=== PATIENT | male | born 1975 | race Caucasian/White ===

== ENCOUNTER 2017-02-08 17:03 | Inpatient (IN) | payer OTHER ==
[~2017-02-08] VITALS: Ht 177.8 cm; Wt 75.3 kg
[~2017-02-08 17:03] MED LIST: AMOXICOT500 MG PO; ATIVAN1 MG PO; DIAZEPAM10 M1 PO; DILANTIN100 MG PO; KLONOPIN1 MG PO; LEVETIRACETAM500 MG PO; LOMOTIL 0.025 M1 TA1 PO; PHENERGAN25 MG RC; TEGRETOL100 MG PO; TEGRETOL200 MG PO; TRAMADOL HCL50 MG PO; TRAZODONE50 MG PO; TRIMOX500 MG PO; VALIUM10 MG PO; VICODIN 5/500 505 MG PO; VICODIN ES 7501 TAB PO; VYVANSE50 MG PO
[2017-02-08 17:08] VITALS: BP 130/77
[2017-02-08 17:35] LABS: BASO # 0.1 10*3/uL (0.0-0.1); BASO % 0.4 % (0.0-1.0); EOS % 0.1 % (1.0-4.0); HEMATOCRIT 49.7 % (42.0-52.0); HEMOGLOBIN 16.1 g/dl (14.0-18.0); LYMPH % 15.1 % (27.0-41.0); MEAN CELL VOLUME 89.1 fl (80.0-94.0); MEAN CORPUSCULAR HGB 28.9 pg (27.0-31.0); MEAN CORPUSCULAR HGB CONC 32.4 g/dl (33.0-37.0); MEAN PLATELET VOLUME 10.5 fl (9.6-12.3); MONO # 0.5 10*3/uL (0.1-1.0); MONO % 3.7 % (3.0-9.0); NEUT # 10.7 10*3/uL (2.3-7.9); NEUT % 80.3 % (47.0-73.0); PLATELET COUNT AUTOMATED 283 10*3/uL (130-400); RED BLOOD COUNT 5.58 10*6/uL (4.50-5.90); RED CELL DISTRI WIDTH 14.4 % (0-14.5); WHITE BLOOD COUNT 13.4 10*3/uL (4.8-10.8)
[2017-02-08 17:44] LABS: ACT PARTIAL THROMBO TIME 26.8 SECONDS (20.8-31.5)
[2017-02-08 17:49] LABS: ALBUMIN 3.5 gm/dl (3.1-4.5); ALKALINE PHOSPHATASE 192 U/L (45-117); BUN 12 mg/dl (7-24); CHLORIDE 104 mmol/L (98-107); CREATININE 0.88 mg/dL (0.70-1.30); MAGNESIUM 2.2 mg/dL (1.5-2.1); POTASSIUM 4.4 mmol/L (3.5-5.1); SGOT/AST 147 IU/L (3-35); SGPT/ALT 228 U/L (12-78); SODIUM 138 mmol/L (136-145); TOTAL PROTEIN 7.5 gm/dL (6.4-8.2)
--- NOTE | 2017-02-08 19:30 | NUR ---
41 year old MALE admitted to room # 411 for stabilization. 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 Compliant with admission procedure. Patient denies any anxiety, but is unable to sit still, taps toes to floor continuously, looks about room, unable to focus eyes on nurse during interview. See assessment forms for additional information about patient status.
--- NOTE | 2017-02-08 19:37 | NUR ---
PT C/O NAUSEA, ANXIETY, AND BODY ACHES "ALL OVER" RATING ACHES 4/10. OH ZOFRAN, VISTARIL AND ROBAXIN GIVEN PER ORDER
[2017-02-08 20:00] VITALS: BP 121/67
--- NOTE | 2017-02-08 20:10 | NUR ---
PER PT PRN WERE EFFECTIVE, PT IN BED WITH EYES OPEN, VISITING WITH . CALL LIGHT WITHIN REACH
[2017-02-08 22:33] LABS: BILIRUBIN NEGATIVE (NEGATIVE); BLOOD NEGATIVE (NEGATIVE); CLARITY CLEAR (CLEAR); COLOR YELLOW (YELLOW); GLUCOSE NEGATIVE (NEGATIVE); KETONE NEGATIVE (NEGATIVE); LEUKO ESTERASE NEGATIVE (NEGATIVE); NITRITE NEGATIVE (NEGATIVE); PH 6.5 (5.0-9.0); SPECIFIC GRAVITY <= 1.005 (1.005-1.030); UROBILINOGEN 0.2 E.U./dl (0.2-1.0)
[2017-02-08 22:39] LABS: URINE AMPHETAMINES < 1000 (1000ng/ml); URINE BARBITURATES < 200 (200ng/ml); URINE BENZODIAZEPINES < 200 (200ng/ml); URINE CANNABINOIDS (THC) < 50 (50ng/ml); URINE COCAINE > 300 (300ng/ml); URINE METHADONE < 300 (300ng/ml); URINE OPIATES > 300 (300ng/ml)
[2017-02-08 22:40] LABS: URINE PHENCYCLIDINE < 25 (25ng/ml)
[2017-02-08 22:42] LABS: BACTERIA TRACE; MUCOUS TRACE; RBC 0-2 rbc/hpf (0-2); WBC 0-2 wbc/hpf (0-5)
[2017-02-09] VITALS: BP 120/57
[2017-02-09 05:48] LABS: ALBUMIN 2.9 gm/dl (3.1-4.5); ALKALINE PHOSPHATASE 167 U/L (45-117); BUN 15 mg/dl (7-24); CHLORIDE 106 mmol/L (98-107); CREATININE 0.86 mg/dL (0.70-1.30); POTASSIUM 4.3 mmol/L (3.5-5.1); SGOT/AST 138 IU/L (3-35); SGPT/ALT 213 U/L (12-78); SODIUM 143 mmol/L (136-145); TOTAL PROTEIN 6.5 gm/dL (6.4-8.2)
[2017-02-09 05:54] LABS: BASO # 0.1 10*3/uL (0.0-0.1); BASO % 0.7 % (0.0-1.0); EOS # 0.2 10*3/uL (0.0-0.4); EOS % 2.3 % (1.0-4.0); HEMATOCRIT 45.8 % (42.0-52.0); HEMOGLOBIN 14.8 g/dl (14.0-18.0); LYMPH # 2.8 10*3/uL (1.3-4.4); LYMPH % 31.8 % (27.0-41.0); MEAN CELL VOLUME 89.6 fl (80.0-94.0); MEAN CORPUSCULAR HGB CONC 32.3 g/dl (33.0-37.0); MEAN PLATELET VOLUME 10.7 fl (9.6-12.3); MONO # 0.8 10*3/uL (0.1-1.0); MONO % 8.7 % (3.0-9.0); NEUT # 4.9 10*3/uL (2.3-7.9); NEUT % 56.2 % (47.0-73.0); PLATELET COUNT AUTOMATED 262 10*3/uL (130-400); RED BLOOD COUNT 5.11 10*6/uL (4.50-5.90); RED CELL DISTRI WIDTH 14.6 % (0-14.5); WHITE BLOOD COUNT 8.7 10*3/uL (4.8-10.8)
--- NOTE | 2017-02-09 06:48 | NUR ---
24 HR chart check completed.
[2017-02-09 08:00] VITALS: BP 99/59
[2017-02-09 12:00] VITALS: BP 93/57
--- NOTE | 2017-02-09 15:52 | NUR ---
PRN PAIN MED GIVEN FOR 5/10 GENERALIZED ACHES.
--- NOTE | 2017-02-09 15:52 | NUR ---
PRN VISTARIL GIVEN FOR PT REPORT OF ANXIETY.
[2017-02-09 16:00] VITALS: BP 94/52
--- NOTE | 2017-02-09 16:52 | NUR ---
PRN ANXIETY MED EFFECTIVE, PT REPORTS ANXIETY HAS LESSENS.
--- NOTE | 2017-02-09 16:52 | NUR ---
PRN PAIN MED MINIMALLY EFFECTIVE PT REPORTS PAIN STILL 4-5/10 AND REQUESTING TYLENOL.
--- NOTE | 2017-02-09 17:20 | NUR ---
PRN MOTRIN GIVEN FOR 5/10 GENERALIZED ACHES.
--- NOTE | 2017-02-09 18:20 | NUR ---
PRN MOTRIN EFFECTIVE FOR PAIN PT RATES PAIN 2-3/10 GENERALIZED ACHES.
[2017-02-09 20:00] VITALS: BP 98/58
--- NOTE | 2017-02-09 22:00 | NUR ---
MEDICATE WITH BENTYL, DESYREL, REQUIP, ROBAXIN, AND VISTARIL FOR C/O WITHDRAWL.
--- NOTE | 2017-02-09 23:15 | NUR ---
Patient resting. Responding to scheduled medications with fewer complaints of pain and anxiety.
[2017-02-10] VITALS: BP 92/48
--- NOTE | 2017-02-10 02:00 | NUR ---
SLEEPING. NO SXS OF DISTRESS. CALL LIGHT IN REACH.
--- NOTE | 2017-02-10 05:49 | NUR ---
Patient reports the following symptoms of withdrawal: body aches, leg pain, nausea and cravings. Patient given scheduled/PRN medication to control withdrawal symptoms. Close observation will be maintained.
--- NOTE | 2017-02-10 06:42 | NUR ---
Patient resting. Responding to scheduled medications with fewer complaints of pain and anxiety.
[2017-02-10 08:00] VITALS: BP 85/46
[2017-02-10 12:00] VITALS: BP 109/53
[2017-02-10 13:04] LABS: HEPATITIS B SURFACE AG Negative (Negative)
[2017-02-10 16:00] VITALS: BP 97/60
--- NOTE | 2017-02-10 19:31 | NUR ---
PRN BENTYL GIVEN FOR PT REPORT STOMACH PAIN 5/10 WITH EATING.
--- NOTE | 2017-02-10 19:31 | NUR ---
PRN REQUIP GIVEN FOR PT REPORT 5/10 LEG PAIN.
[2017-02-10 20:00] VITALS: BP 118/58
--- NOTE | 2017-02-10 20:31 | NUR ---
PRN REQUIP EFFECTIVE, PT DENIES LEG PAIN.
--- NOTE | 2017-02-10 20:31 | NUR ---
PRN STOMACH MED EFFECTIVE PT DENIES ANY ABDOMINAL PAIN.
--- NOTE | 2017-02-10 20:52 | NUR ---
PRN TRAZADONE AND VISTARIL GIVEN PER PT REQUEST. PT REPORTS ANXIETY AND JUST WANTING TO SLEEP.
--- NOTE | 2017-02-10 20:52 | NUR ---
HERIBERTO PAGE APPLIED PER PT REQUEST.
--- NOTE | 2017-02-10 21:52 | NUR ---
PRN TRAZADONE AND VISTRIL EFFECTIVE, PT STATES HE IS FEELING LESS ANXIOUS.
[2017-02-11] VITALS: BP 104/52
--- NOTE | 2017-02-11 01:53 | NUR ---
24 HR chart check completed.
[2017-02-11 08:00] VITALS: BP 94/54
--- NOTE | 2017-02-11 08:59 | NUR ---
C/O back pain and restless legs. Medicated with requip, tylenol, and robaxin. Vistaril given for mild anxiety. Pt states that he has an appointment at 11 am today and needs to be discharged soon so he can make that appt. States he doesnt want to miss it as it is very important.
--- NOTE | 2017-02-11 09:15 | NUR ---
Spoke with Dr. Castaneda at this time and notified him that pt has important appointment at 11 am today and needs to be discharged soon to make pt. Dr. Castaneda states he will call Dr. Parker regarding this.
[2017-02-11 09:41] LABS: HEPATITIS C VIRUS ANTIBODY >11.0 s/co (0.0-0.9)
[2017-02-11] MEDS ORDERED: ZOFRAN 4 MG ED2 TAB PO (10:20)
[2017-02-11] MEDS ORDERED: ROPINIROLE HYD0.5 MG PO (10:20)
[2017-02-11] MEDS ORDERED: ATARAX,VISTARIL50 MG PO (10:20)
--- NOTE | 2017-02-11 10:30 | NUR ---
Discharge instructions reviewed with patient/family. Patient receptive and verbalizes understanding. Follow-up care arranged. Written instructions given to patient/family. Pt instructed to follow up with PCP and Dr. Tabor. Left via ambulatory in care of . Declined wheelchair. PATRICIA NUR
== END 2017-02-11 10:30 | disposition home or self-care (01) | DRG 897 ==
LOC: ED 17:03 → 4E 17:23 → EDHOLD 17:23 → 4E 17:57
PROVIDERS: Emergency Medicine; Internal Medicine; ADMIT Internal Medicine
DX: F11.23 Opioid dependence with withdrawal (principal); G40.804 Other epilepsy, intractable, without status epilepticus; E44.0 Moderate protein-calorie malnutrition; F41.9 Anxiety disorder, unspecified; F32.9 Major depressive disorder, single episode, unspecified; R76.8 Other specified abnormal immunological findings in serum; R74.0 Nonspecific elevation of levels of transaminase and lactic acid dehydrogenase [LDH]; Z72.0 Tobacco use; Z71.6 Tobacco abuse counseling; Z68.23 Body mass index [BMI] 23.0-23.9, adult; Z82.49 Family history of ischemic heart disease and other diseases of the circulatory system; Z80.8 Family history of malignant neoplasm of other organs or systems; Z82.0 Family history of epilepsy and other diseases of the nervous system; Z79.899 Other long term (current) drug therapy

== ENCOUNTER 2017-09-20 15:30 | Emergency (ER) | payer OTHER ==
[~2017-09-20] VITALS: Ht 177.8 cm; Wt 77.1 kg
[~2017-09-20 15:30] MED LIST changes: +ATARAX,VISTARIL50 MG PO; +ROPINIROLE HYD0.5 MG PO; +ZOFRAN 4 MG ED2 TAB PO
[2017-09-20] MEDS ORDERED: KEPPRA500 MG PO (17:32)
== END 2017-09-20 17:33 | disposition home or self-care (01) ==
LOC: ED 15:30
DX: R56.9 Unspecified convulsions (principal); F41.9 Anxiety disorder, unspecified; F32.9 Major depressive disorder, single episode, unspecified; F17.200 Nicotine dependence, unspecified, uncomplicated; Z79.899 Other long term (current) drug therapy

== ENCOUNTER 2018-02-10 11:47 | Emergency (ER) | payer OTHER ==
[~2018-02-10] VITALS: Ht 177.8 cm; Wt 74.8 kg
--- NOTE | ~2018-02-10 | EKG ---
[place], [place] ELECTROCARDIOGRAM REPORT NAME: TD JAIMES UNIT #: [id number] ROOM: DOCTOR: EPIPHANY DRAFT REPORT BIRTHDATE: [birth year] [facility] Test Date: 2018-02-10 Test Time: 12:41:56 Pat Name: TD JAIMES Department: Room: Gender: Associate Loan Officer: Becky Montes De Oca : 1975 Requested By: RHONDA TINAJERO Order Number: [id number] Reading MD: Lane Villalobos MD Measurements Intervals [place] Rate: 83 P: 70 IA: 142 QRS: 92 QRSD: 90 T: 30 QT: 359 QTc: 422 Interpretive Statements Sinus rhythm Right atrial enlargement Borderline right axis deviation Minimal ST depression, inferior leads Electronically Signed On 02-10-2018 19:03:[address]alobos MD CM:EKGRPT:ELECTROCARDIOGRAM REPORT [id number] RHONDA SIFUENTES DRAFT REPORT RHONDA TINAJERO DO
[~2018-02-10 11:47] MED LIST changes: +KEPPRA500 MG PO
[2018-02-10 12:40] LABS: BASO # 0.1 10*3/uL (0.0-0.1); BASO % 0.7 % (0.0-1.0); EOS # 0.2 10*3/uL (0.0-0.4); EOS % 2.1 % (1.0-4.0); HEMATOCRIT 46.7 % (42.0-52.0); HEMOGLOBIN 15.4 g/dl (14.0-18.0); LYMPH # 1.9 10*3/uL (1.3-4.4); MEAN CELL VOLUME 88.4 fl (80.0-94.0); MEAN CORPUSCULAR HGB 29.2 pg (27.0-31.0); MEAN PLATELET VOLUME 10.6 fl (9.6-12.3); MONO # 0.7 10*3/uL (0.1-1.0); MONO % 9.5 % (3.0-9.0); NEUT # 4.8 10*3/uL (2.3-7.9); NEUT % 62.4 % (47.0-73.0); PLATELET COUNT AUTOMATED 215 10*3/uL (130-400); RED BLOOD COUNT 5.28 10*6/uL (4.50-5.90); RED CELL DISTRI WIDTH 15.1 % (0-14.5); WHITE BLOOD COUNT 7.7 10*3/uL (4.8-10.8)
[2018-02-10 12:57] LABS: ALBUMIN 3.4 gm/dl (3.1-4.5); ALKALINE PHOSPHATASE 143 U/L (45-117); BUN 9 mg/dl (7-24); CHLORIDE 102 mmol/L (98-107); CREATININE 0.98 mg/dL (0.70-1.30); LIPASE 56 U/L (73-393); POTASSIUM 3.7 mmol/L (3.5-5.1); SGOT/AST 70 IU/L (3-35); SGPT/ALT 132 U/L (12-78); SODIUM 139 mmol/L (136-145); TOTAL PROTEIN 7.2 gm/dL (6.4-8.2)
[2018-02-10 13:05] LABS: ACT PARTIAL THROMBO TIME 25.3 SECONDS (20.8-31.5); TROPONIN I < 0.015 ng/ml (<0.045)
== END 2018-02-10 15:05 | disposition left against medical advice (07) ==
LOC: ED 11:47
PROVIDERS: Emergency Medicine
DX: R51 Headache (principal); R42 Dizziness and giddiness; G40.909 Epilepsy, unspecified, not intractable, without status epilepticus; F17.200 Nicotine dependence, unspecified, uncomplicated; Z79.899 Other long term (current) drug therapy

== ENCOUNTER 2018-06-12 11:26 | Emergency (ER) | payer OTHER ==
[~2018-06-12] VITALS: Ht 177.8 cm; Wt 79.4 kg
[2018-06-12 12:42] LABS: BASO # 0.1 10*3/uL (0.0-0.1); BASO % 0.6 % (0.0-1.0); EOS # 0.3 10*3/uL (0.0-0.4); HEMATOCRIT 44.8 % (42.0-52.0); HEMOGLOBIN 14.8 g/dl (14.0-18.0); LYMPH % 32.3 % (27.0-41.0); MEAN CORPUSCULAR HGB 29.7 pg (27.0-31.0); MEAN PLATELET VOLUME 10.3 fl (9.6-12.3); MONO # 0.9 10*3/uL (0.1-1.0); MONO % 9.9 % (3.0-9.0); NEUT # 5.1 10*3/uL (2.3-7.9); NEUT % 53.9 % (47.0-73.0); PLATELET COUNT AUTOMATED 234 10*3/uL (130-400); RED BLOOD COUNT 4.98 10*6/uL (4.50-5.90); RED CELL DISTRI WIDTH 14.6 % (0-14.5); WHITE BLOOD COUNT 9.4 10*3/uL (4.8-10.8)
[2018-06-12 12:55] LABS: ALBUMIN 3.3 gm/dl (3.1-4.5); ALKALINE PHOSPHATASE 103 U/L (45-117); BUN 18 mg/dl (7-24); CHLORIDE 103 mmol/L (98-107); CREATININE 1.01 mg/dL (0.70-1.30); POTASSIUM 3.7 mmol/L (3.5-5.1); SGOT/AST 23 IU/L (3-35); SODIUM 137 mmol/L (136-145); TOTAL PROTEIN 6.9 gm/dL (6.4-8.2)
[2018-06-12 12:57] LABS: SGPT/ALT 36 U/L (12-78)
[2018-06-12] MEDS ORDERED: SEPTDS PO (12:57)
[2018-06-12] MEDS ORDERED: CEPHALEXIN500 M1 PO (12:57)
== END 2018-06-12 13:28 | disposition home or self-care (01) ==
LOC: ED 11:26
PROVIDERS: Nurse Practitioner Family
DX: L03.113 Cellulitis of right upper limb (principal); F17.200 Nicotine dependence, unspecified, uncomplicated

== ENCOUNTER 2018-11-28 09:49 | Inpatient (IN) | payer OTHER ==
[~2018-11-28] VITALS: Ht 177.8 cm; Wt 83.1 kg
--- NOTE | ~2018-11-28 | EKG ---
[place], [place] ELECTROCARDIOGRAM REPORT NAME: TD JAIMES UNIT #: [id number] ROOM: 529 DOCTOR: LORY DRAFT REPORT BIRTHDATE: [birth year] [facility] Test Date: 2018-11-28 Test Time: 14:28:13 Pat Name: TD JAIMES Department: Room: 529 1 Gender: M Jointer Operator: : 1975 Requested By: MJ PARADA Order Number: [id number] Reading MD: Lulu Rush Measurements Intervals [place] Rate: 69 P: 63 WI: 185 QRS: 83 QRSD: 95 T: 33 QT: 387 QTc: 415 Interpretive Statements Sinus rhythm Probable left ventricular hypertrophy ST elev, probable normal early repol pattern Baseline wander in lead(s) V2 Compared to ECG 02/10/2018 12:41:56 Atrial abnormality no longer present ST (T wave) deviation still present Electronically Signed On 11-30-2018 8:55:44 PDT by Lulu Rush CM:EKGRPT:ELECTROCARDIOGRAM REPORT [id number] MJ PARADA EPIPHANY DRAFT REPORT MJ PARADA
[~2018-11-28 09:49] MED LIST changes: +CEPHALEXIN500 M1 PO; +SEPTDS PO
[2018-11-28 10:22] VITALS: BP 125/71
[2018-11-28 13:30] LABS: BILIRUBIN NEGATIVE (NEGATIVE); BLOOD NEGATIVE (NEGATIVE); CLARITY SL CLOUDY (CLEAR); COLOR YELLOW (YELLOW); GLUCOSE NEGATIVE (NEGATIVE); KETONE NEGATIVE (NEGATIVE); LEUKO ESTERASE NEGATIVE (NEGATIVE); NITRITE NEGATIVE (NEGATIVE); PH 5.5 (5.0-9.0); SPECIFIC GRAVITY >= 1.030 (1.005-1.030); UROBILINOGEN 0.2 E.U./dl (0.2-1.0)
[2018-11-28 13:41] LABS: URINE AMPHETAMINES < 1000 (1000ng/ml); URINE BARBITURATES < 200 (200ng/ml); URINE BENZODIAZEPINES < 200 (200ng/ml); URINE CANNABINOIDS (THC) < 50 (50ng/ml); URINE COCAINE > 300 (300ng/ml); URINE METHADONE < 300 (300ng/ml); URINE OPIATES > 300 (300ng/ml)
[2018-11-28 13:43] LABS: BACTERIA 1+; MUCOUS 1+
[2018-11-28 13:44] LABS: HYALINE CAST 16-20
[2018-11-28 13:44] LABS: BASO # 0.1 10*3/uL (0.0-0.1); BASO % 0.8 % (0.0-1.0); EOS # 0.1 10*3/uL (0.0-0.4); EOS % 1.4 % (1.0-4.0); HEMATOCRIT 43.9 % (42.0-52.0); HEMOGLOBIN 14.2 g/dl (14.0-18.0); LYMPH # 2.4 10*3/uL (1.3-4.4); LYMPH % 24.7 % (27.0-41.0); MEAN CELL VOLUME 91.5 fl (80.0-94.0); MEAN CORPUSCULAR HGB 29.6 pg (27.0-31.0); MEAN CORPUSCULAR HGB CONC 32.3 g/dl (33.0-37.0); MEAN PLATELET VOLUME 9.7 fl (9.6-12.3); MONO # 0.9 10*3/uL (0.1-1.0); NEUT # 6.1 10*3/uL (2.3-7.9); NEUT % 63.9 % (47.0-73.0); PLATELET COUNT AUTOMATED 293 10*3/uL (130-400); RED CELL DISTRI WIDTH 15.2 % (0-14.5); WHITE BLOOD COUNT 9.6 10*3/uL (4.8-10.8)
[2018-11-28 13:45] LABS: URINE PHENCYCLIDINE < 25 (25ng/ml)
[2018-11-28 13:55] LABS: INTERNATIONAL NORM RATIO 0.9 (2.0-3.5)
[2018-11-28 13:59] LABS: ALBUMIN 3.2 gm/dl (3.1-4.5); ALKALINE PHOSPHATASE 88 U/L (45-117); BUN 13 mg/dl (7-24); CHLORIDE 101 mmol/L (98-107); CREATININE 0.82 mg/dL (0.70-1.30); POTASSIUM 3.6 mmol/L (3.5-5.1); SGOT/AST 18 IU/L (3-35); SGPT/ALT 36 U/L (12-78); SODIUM 136 mmol/L (136-145)
[2018-11-28 14:00] LABS: ETHYL ALCOHOL < 3.0 mg/dl (<3)
[2018-11-28 16:00] VITALS: BP 107/57
[2018-11-28 20:00] VITALS: BP 133/72
[2018-11-29] VITALS: BP 109/68
[2018-11-29 08:00] VITALS: BP 103/56
[2018-11-29 12:00] VITALS: BP 117/62
[2018-11-29 16:00] VITALS: BP 103/59
[2018-11-29 20:00] VITALS: BP 112/53
[2018-11-30] VITALS: BP 118/61
[2018-11-30 08:00] VITALS: BP 113/58
[2018-11-30 12:00] VITALS: BP 99/57
[2018-11-30 16:00] VITALS: BP 115/62
[2018-11-30 20:00] VITALS: BP 117/60
[2018-12-01] VITALS: BP 120/62
[2018-12-01 08:00] VITALS: BP 116/64
== END 2018-12-01 11:45 | disposition home or self-care (01) | DRG 897 ==
LOC: 5E 09:49
PROVIDERS: Registered Nurse; ADMIT Emergency Medicine
DX: F11.23 Opioid dependence with withdrawal (principal); E44.0 Moderate protein-calorie malnutrition; F13.239 Sedative, hypnotic or anxiolytic dependence with withdrawal, unspecified; G40.909 Epilepsy, unspecified, not intractable, without status epilepticus; F17.210 Nicotine dependence, cigarettes, uncomplicated; F41.9 Anxiety disorder, unspecified; F32.9 Major depressive disorder, single episode, unspecified; Z82.49 Family history of ischemic heart disease and other diseases of the circulatory system; Z82.0 Family history of epilepsy and other diseases of the nervous system; Z79.899 Other long term (current) drug therapy; Z68.26 Body mass index [BMI] 26.0-26.9, adult

== ENCOUNTER 2019-09-29 07:46 | Emergency (ER) | payer MEDICARE, MEDICAID ==
[~2019-09-29] VITALS: Ht 177.8 cm; Wt 95.3 kg
[2019-09-29 08:54] LABS: BASO % 0.4 % (0.0-1.0); EOS # 0.2 10*3/uL (0.0-0.4); EOS % 2.4 % (1.0-4.0); HEMATOCRIT 44.3 % (42.0-52.0); LYMPH # 2.6 10*3/uL (1.3-4.4); LYMPH % 34.6 % (27.0-41.0); MEAN CELL VOLUME 92.3 fl (80.0-94.0); MEAN CORPUSCULAR HGB CONC 32.5 g/dl (33.0-37.0); MEAN PLATELET VOLUME 10.6 fl (9.6-12.3); MONO % 13.2 % (3.0-9.0); NEUT # 3.8 10*3/uL (2.3-7.9); NEUT % 49.1 % (47.0-73.0); PLATELET COUNT AUTOMATED 209 10*3/uL (130-400); WHITE BLOOD COUNT 7.6 10*3/uL (4.8-10.8)
[2019-09-29 09:08] LABS: ALBUMIN 3.2 gm/dl (3.1-4.5); ALKALINE PHOSPHATASE 98 U/L (45-117); BUN 9 mg/dl (7-24); CHLORIDE 105 mmol/L (98-107); CREATININE 0.82 mg/dL (0.70-1.30); POTASSIUM 3.6 mmol/L (3.5-5.1); SGOT/AST 38 IU/L (3-35); SGPT/ALT 69 U/L (12-78); SODIUM 139 mmol/L (136-145); TOTAL PROTEIN 6.8 gm/dL (6.4-8.2)
[2019-09-29 10:37] LABS: URINE AMPHETAMINES < 1000 (1000ng/ml); URINE BARBITURATES < 200 (200ng/ml); URINE BENZODIAZEPINES < 200 (200ng/ml); URINE CANNABINOIDS (THC) < 50 (50ng/ml); URINE COCAINE > 300 (300ng/ml); URINE METHADONE < 300 (300ng/ml); URINE OPIATES > 300 (300ng/ml)
[2019-09-29 10:39] LABS: URINE PHENCYCLIDINE < 25 (25ng/ml)
[2019-09-29] MEDS ORDERED: KEPPRA500 MG PO (10:43)
== END 2019-09-29 10:49 | disposition home or self-care (01) ==
LOC: ED 07:46
PROVIDERS: Emergency Medicine; Family Medicine
DX: G40.909 Epilepsy, unspecified, not intractable, without status epilepticus (principal); F17.210 Nicotine dependence, cigarettes, uncomplicated; Z98.890 Other specified postprocedural states

== ENCOUNTER 2020-01-20 09:23 | Inpatient (IN) | payer MEDICARE, MEDICAID ==
[~2020-01-20] VITALS: Ht 177.8 cm; Wt 89.1 kg
[2020-01-20] MEDS ORDERED: KEPPRA500 MG PO (10:43)
[2020-01-20 11:05] LABS: URINE AMPHETAMINES < 1000 (1000ng/ml); URINE BARBITURATES < 200 (200ng/ml); URINE BENZODIAZEPINES < 200 (200ng/ml); URINE CANNABINOIDS (THC) < 50 (50ng/ml); URINE COCAINE > 300 (300ng/ml); URINE METHADONE < 300 (300ng/ml); URINE OPIATES > 300 (300ng/ml)
[2020-01-20 11:06] LABS: URINE PHENCYCLIDINE < 25 (25ng/ml)
[2020-01-20 11:07] VITALS: BP 147/95
[2020-01-20 11:29] LABS: BILIRUBIN NEGATIVE; CLARITY CLEAR (CLEAR); COLOR YELLOW (YELLOW); GLUCOSE NEGATIVE; KETONE NEGATIVE
[2020-01-20 11:30] LABS: BLOOD NEGATIVE (NEGATIVE); LEUKO ESTERASE NEGATIVE (NEGATIVE); NITRITE NEGATIVE (NEGATIVE); SPECIFIC GRAVITY > 1.030 (1.001-1.030)
[2020-01-20 11:31] LABS: MUCOUS 2+; WBC 0-2 wbc/hpf (0-5)
[2020-01-20 11:32] LABS: BACTERIA 1+; CALCIUM OXALATE CRYSTALS 3+
[2020-01-20 11:53] LABS: BASO # 0.1 10*3/uL (0.0-0.1); BASO % 0.5 % (0.0-1.0); EOS # 0.1 10*3/uL (0.0-0.4); EOS % 1.1 % (1.0-4.0); HEMATOCRIT 45.8 % (42.0-52.0); LYMPH # 2.8 10*3/uL (1.3-4.4); LYMPH % 24.6 % (27.0-41.0); MEAN CELL VOLUME 89.5 fl (80.0-94.0); MEAN CORPUSCULAR HGB 28.7 pg (27.0-31.0); MEAN CORPUSCULAR HGB CONC 32.1 g/dl (33.0-37.0); MEAN PLATELET VOLUME 10.1 fl (9.6-12.3); MONO # 0.9 10*3/uL (0.1-1.0); NEUT # 7.4 10*3/uL (2.3-7.9); NEUT % 65.6 % (47.0-73.0); PLATELET COUNT AUTOMATED 267 10*3/uL (130-400); RED BLOOD COUNT 5.12 10*6/uL (4.50-5.90); RED CELL DISTRI WIDTH 13.8 % (0-14.5); WHITE BLOOD COUNT 11.2 10*3/uL (4.8-10.8)
[2020-01-20 12:00] VITALS: BP 110/80
[2020-01-20 12:10] LABS: ALBUMIN 3.3 gm/dl (3.1-4.5); ALKALINE PHOSPHATASE 97 U/L (45-117); BUN 10 mg/dl (7-24); CHLORIDE 105 mmol/L (98-107); CREATININE 1.07 mg/dL (0.70-1.30); POTASSIUM 3.8 mmol/L (3.5-5.1); SGOT/AST 23 IU/L (3-35); SGPT/ALT 40 U/L (12-78); SODIUM 137 mmol/L (136-145); TOTAL PROTEIN 7.5 gm/dL (6.4-8.2)
[2020-01-20 12:11] LABS: ETHYL ALCOHOL < 3.0 mg/dl (<3)
[2020-01-20 16:00] VITALS: BP 101/74
[2020-01-20 20:00] VITALS: BP 102/66
[2020-01-21] VITALS: BP 112/74
[2020-01-21 08:00] VITALS: BP 108/67
[2020-01-21 12:00] VITALS: BP 120/72
[2020-01-21 16:00] VITALS: BP 124/78
[2020-01-21 20:00] VITALS: BP 110/69
[2020-01-22] VITALS: BP 99/60
[2020-01-22 08:00] VITALS: BP 112/62
[2020-01-22 12:00] VITALS: BP 112/62
[2020-01-22 16:00] VITALS: BP 122/78
== END 2020-01-22 18:30 | disposition left against medical advice (07) | DRG 894 ==
LOC: 5E 09:23 → 4E 01-21 13:44
PROVIDERS: Internal Medicine; ADMIT Family Medicine; ATTEND Family Medicine
DX: F11.23 Opioid dependence with withdrawal (principal); F14.10 Cocaine abuse, uncomplicated; F12.10 Cannabis abuse, uncomplicated; F41.9 Anxiety disorder, unspecified; R19.7 Diarrhea, unspecified; R25.2 Cramp and spasm; F32.9 Major depressive disorder, single episode, unspecified; F17.210 Nicotine dependence, cigarettes, uncomplicated; Z53.29 Procedure and treatment not carried out because of patient's decision for other reasons; G40.909 Epilepsy, unspecified, not intractable, without status epilepticus; D72.829 Elevated white blood cell count, unspecified; R76.8 Other specified abnormal immunological findings in serum; Z82.49 Family history of ischemic heart disease and other diseases of the circulatory system; Z82.0 Family history of epilepsy and other diseases of the nervous system

== ENCOUNTER 2020-06-02 16:11 | Emergency (ER) | payer MEDICARE ==
[2020-06-02 17:03] LABS: BASO # 0.1 10*3/uL (0.0-0.1); BASO % 0.7 % (0.0-1.0); EOS # 0.1 10*3/uL (0.0-0.4); EOS % 1.8 % (1.0-4.0); HEMATOCRIT 47.1 % (42.0-52.0); LYMPH # 1.8 10*3/uL (1.3-4.4); MEAN CELL VOLUME 88.2 fl (80.0-94.0); MEAN CORPUSCULAR HGB 28.1 pg (27.0-31.0); MEAN CORPUSCULAR HGB CONC 31.8 g/dl (33.0-37.0); MEAN PLATELET VOLUME 9.8 fl (9.6-12.3); MONO # 0.5 10*3/uL (0.1-1.0); MONO % 7.2 % (3.0-9.0); NEUT # 4.6 10*3/uL (2.3-7.9); NEUT % 65.2 % (47.0-73.0); PLATELET COUNT AUTOMATED 266 10*3/uL (130-400); RED BLOOD COUNT 5.34 10*6/uL (4.50-5.90); WHITE BLOOD COUNT 7.1 10*3/uL (4.8-10.8)
[2020-06-02 17:12] LABS: INTERNATIONAL NORM RATIO 0.9 (2.0-3.5)
[2020-06-02 17:25] LABS: ALBUMIN 3.1 gm/dl (3.1-4.5); ALKALINE PHOSPHATASE 104 U/L (45-117); BUN 16 mg/dl (7-24); CHLORIDE 105 mmol/L (98-107); CREATININE 0.87 mg/dL (0.70-1.30); POTASSIUM 3.7 mmol/L (3.5-5.1); SGOT/AST 27 IU/L (3-35); SGPT/ALT 49 U/L (12-78); SODIUM 140 mmol/L (136-145); TOTAL PROTEIN 6.9 gm/dL (6.4-8.2)
[2020-06-02 17:36] LABS: ETHYL ALCOHOL < 3.0 mg/dl (<3); TROPONIN I < 0.015 ng/ml (<0.045)
[2020-08-26] MEDS ORDERED: TYLENOL325 M1 PO ×2 (19:18)
[2020-08-26] MEDS ORDERED: NAPROXEN250 MG PO ×2 (19:18)
== END 2020-06-02 18:25 | disposition home or self-care (01) ==
LOC: ED 16:11
PROVIDERS: Physician Assistant
DX: G40.909 Epilepsy, unspecified, not intractable, without status epilepticus (principal); Z98.890 Other specified postprocedural states

== ENCOUNTER 2020-09-01 08:42 | Inpatient (IN) | payer MEDICARE ==
[~2020-09-01] VITALS: Ht 177.8 cm; Wt 74.6 kg
[~2020-09-01 08:42] MED LIST changes: +NAPROXEN250 MG PO; +TYLENOL325 M1 PO
[2020-09-01 08:52] VITALS: BP 115/66
[2020-09-01 09:07] LABS: HEMATOCRIT 41.9 % (42.0-52.0); MEAN CORPUSCULAR HGB 28.4 pg (27.0-31.0); MEAN CORPUSCULAR HGB CONC 32.2 g/dl (33.0-37.0); PLATELET COUNT AUTOMATED 337 10*3/uL (130-400); RED BLOOD COUNT 4.76 10*6/uL (4.50-5.90); WHITE BLOOD COUNT 19.4 10*3/uL (4.8-10.8)
[2020-09-01 09:09] VITALS: BP 103/62
[2020-09-01 09:23] LABS: ALBUMIN 2.6 gm/dl (3.1-4.5); ALKALINE PHOSPHATASE 108 U/L (45-117); BUN 15 mg/dl (7-24); CHLORIDE 102 mmol/L (98-107); CREATININE 0.73 mg/dL (0.70-1.30); POTASSIUM 4.2 mmol/L (3.5-5.1); SGOT/AST 30 IU/L (3-35); SODIUM 134 mmol/L (136-145); TOTAL PROTEIN 7.9 gm/dL (6.4-8.2)
[2020-09-01 09:24] LABS: BURR CELLS FEW; PLATELET SUFFICIENCY NORMAL (NORMAL); TOTAL CELLS COUNTED 100 #CELLS
[2020-09-01 09:25] LABS: TROPONIN I < 0.015 ng/ml (<0.045)
[2020-09-01 09:26] LABS: SGPT/ALT 35 U/L (12-78)
[2020-09-01 10:57] VITALS: BP 110/54
[2020-09-01 11:32] LABS: BILIRUBIN Negative (Negative); BLOOD Negative (Negative); CLARITY Clear (Clear); COLOR Yellow (Yellow); GLUCOSE Negative (Negative); KETONE 2+ (Negative); LEUKO ESTERASE Negative (Negative); NITRITE Negative (Negative); PH 5.5 (4.5-8.0); SPECIFIC GRAVITY >= 1.030 (1.001-1.030)
[2020-09-01 11:39] LABS: BACTERIA TRACE; EPITHELIAL CELLS 0-2; MUCOUS TRACE; RBC 0-2 rbc/hpf (0-2)
[2020-09-01 11:43] LABS: URINE AMPHETAMINES > 1000 (1000ng/ml); URINE BARBITURATES < 200 (200ng/ml); URINE BENZODIAZEPINES < 200 (200ng/ml); URINE CANNABINOIDS (THC) > 50 (50ng/ml); URINE COCAINE > 300 (300ng/ml); URINE METHADONE < 300 (300ng/ml); URINE OPIATES < 300 (300ng/ml)
[2020-09-01 11:46] LABS: URINE PHENCYCLIDINE < 25 (25ng/ml)
[2020-09-01] MEDS ORDERED: KEPPRA500 MG PO (11:52)
[2020-09-01 12:30] VITALS: BP 122/100
[2020-09-01 16:00] VITALS: BP 108/62
[2020-09-01 20:00] VITALS: BP 100/57
[2020-09-02] VITALS: BP 118/66
[2020-09-02 07:24] LABS: BASO # 0.1 10*3/uL (0.0-0.1); BASO % 0.4 % (0.0-1.0); EOS # 0.3 10*3/uL (0.0-0.4); EOS % 1.9 % (1.0-4.0); HEMATOCRIT 39.4 % (42.0-52.0); LYMPH # 2.2 10*3/uL (1.3-4.4); MEAN CELL VOLUME 88.1 fl (80.0-94.0); MEAN CORPUSCULAR HGB 28.9 pg (27.0-31.0); MEAN CORPUSCULAR HGB CONC 32.7 g/dl (33.0-37.0); MEAN PLATELET VOLUME 9.4 fl (9.6-12.3); MONO # 1.4 10*3/uL (0.1-1.0); MONO % 10.4 % (3.0-9.0); NEUT # 9.5 10*3/uL (2.3-7.9); NEUT % 70.9 % (47.0-73.0); PLATELET COUNT AUTOMATED 328 10*3/uL (130-400); RED BLOOD COUNT 4.47 10*6/uL (4.50-5.90); RED CELL DISTRI WIDTH 13.9 % (0-14.5); WHITE BLOOD COUNT 13.4 10*3/uL (4.8-10.8)
[2020-09-02 07:42] LABS: ALBUMIN 2.3 gm/dl (3.1-4.5); ALKALINE PHOSPHATASE 98 U/L (45-117); BUN 9 mg/dl (7-24); CHLORIDE 107 mmol/L (98-107); CHOLESTEROL 104 mg/dL (<200); FREE T4 1.51 ng/dl (0.76-1.46); HDL CHOLESTEROL 32 mg/dl (40-60); LDL CHOLESTEROL 56 mg/dL (9-159); POTASSIUM 3.6 mmol/L (3.5-5.1); SGOT/AST 15 IU/L (3-35); SGPT/ALT 27 U/L (12-78); SODIUM 139 mmol/L (136-145); TOTAL PROTEIN 7.1 gm/dL (6.4-8.2); TRIGLYCERIDES 81 mg/dl (<150); VLDL CHOLESTEROL 16 mg/dL (6-40)
[2020-09-02 07:46] LABS: THYROID STIM HORMONE (HS) 0.805 uIU/ml (0.358-4.75)
[2020-09-02 08:00] VITALS: BP 100/49
[2020-09-02 08:14] LABS: VITAMIN D, 25-HYDROXY 15.7 ng/mL (30-100)
[2020-09-02] MEDS ORDERED: LEVOFLOXACIN750 M2 PO (11:42)
== END 2020-09-02 11:40 | disposition left against medical advice (07) | DRG 871 ==
LOC: ED 08:42 → EDHOLD 10:40 → 5E 10:40
PROVIDERS: Internal Medicine; Registered Nurse; ADMIT Internal Medicine; ATTEND Internal Medicine
DX: A41.9 Sepsis, unspecified organism (principal); J18.9 Pneumonia, unspecified organism; E43 Unspecified severe protein-calorie malnutrition; F11.23 Opioid dependence with withdrawal; E87.1 Hypo-osmolality and hyponatremia; G40.909 Epilepsy, unspecified, not intractable, without status epilepticus; F32.9 Major depressive disorder, single episode, unspecified; F14.10 Cocaine abuse, uncomplicated; F12.10 Cannabis abuse, uncomplicated; F41.1 Generalized anxiety disorder; J44.9 Chronic obstructive pulmonary disease, unspecified; Z82.0 Family history of epilepsy and other diseases of the nervous system; Z82.49 Family history of ischemic heart disease and other diseases of the circulatory system; Z79.899 Other long term (current) drug therapy; Z53.29 Procedure and treatment not carried out because of patient's decision for other reasons

== ENCOUNTER 2020-10-07 21:17 | Emergency (ER) | payer MEDICARE ==
[~2020-10-07] VITALS: Ht 177.8 cm; Wt 74.8 kg
[~2020-10-07 21:17] MED LIST changes: +LEVOFLOXACIN750 M2 PO
== END 2020-10-07 22:52 | disposition left against medical advice (07) ==
LOC: ED 21:17
DX: G40.909 Epilepsy, unspecified, not intractable, without status epilepticus (principal); F17.200 Nicotine dependence, unspecified, uncomplicated; Z53.29 Procedure and treatment not carried out because of patient's decision for other reasons; Z79.2 Long term (current) use of antibiotics; Z79.899 Other long term (current) drug therapy; Z98.890 Other specified postprocedural states

== ENCOUNTER 2021-10-08 12:09 | Emergency (ER) | payer OTHER ==
[~2021-10-08] VITALS: Ht 177.8 cm; Wt 80.0 kg
[2021-10-08 12:53] LABS: BILIRUBIN Negative (Negative); BLOOD Negative (Negative); CLARITY Clear (Clear); COLOR Yellow (Yellow); GLUCOSE Negative (Negative); KETONE Negative (Negative); LEUKO ESTERASE Negative (Negative); NITRITE Negative (Negative); PH 5.5 (4.5-8.0); UROBILINOGEN 0.2 E.U./dl (0.0-1.0)
[2021-10-08 13:03] LABS: URINE AMPHETAMINES < 1000 (1000ng/ml); URINE BARBITURATES < 200 (200ng/ml); URINE BENZODIAZEPINES < 200 (200ng/ml); URINE CANNABINOIDS (THC) < 50 (50ng/ml); URINE COCAINE > 300 (300ng/ml); URINE METHADONE < 300 (300ng/ml); URINE OPIATES < 300 (300ng/ml)
[2021-10-08 13:13] LABS: URINE PHENCYCLIDINE < 25 (25ng/ml)
[2021-10-08 13:20] LABS: RBC 0-2 rbc/hpf (0-2)
[2021-10-08 13:21] LABS: BACTERIA 1+
[2021-10-08 13:51] LABS: ALKALINE PHOSPHATASE 118 U/L (45-117); BUN 15 mg/dl (7-24); CHLORIDE 110 mmol/L (98-107); CREATININE 0.84 mg/dL (0.70-1.30); POTASSIUM 4.2 mmol/L (3.5-5.1); SGOT/AST 51 IU/L (3-35); SGPT/ALT 89 U/L (12-78); SODIUM 137 mmol/L (136-145)
[2021-10-08 13:52] LABS: ETHYL ALCOHOL < 3.0 mg/dl (<3)
[2021-10-08 14:23] LABS: BASO # 0.1 10*3/uL (0.0-0.1); BASO % 0.5 % (0.0-1.0); EOS # 0.1 10*3/uL (0.0-0.4); HEMATOCRIT 44.7 % (42.0-52.0); LYMPH # 1.7 10*3/uL (1.3-4.4); LYMPH % 14.9 % (27.0-41.0); MEAN CELL VOLUME 88.9 fl (80.0-94.0); MEAN CORPUSCULAR HGB 29.2 pg (27.0-31.0); MEAN CORPUSCULAR HGB CONC 32.9 g/dl (33.0-37.0); MEAN PLATELET VOLUME 10.6 fl (9.6-12.3); MONO # 0.7 10*3/uL (0.1-1.0); MONO % 6.2 % (3.0-9.0); NEUT # 8.6 10*3/uL (2.3-7.9); PLATELET COUNT AUTOMATED 181 10*3/uL (130-400); RED BLOOD COUNT 5.03 10*6/uL (4.50-5.90); RED CELL DISTRI WIDTH 14.6 % (0-14.5); WHITE BLOOD COUNT 11.2 10*3/uL (4.8-10.8)
[2021-10-09 15:04] LABS: EOS % 0.1 % (1.0-4.0); HEMATOCRIT 45.7 % (42.0-52.0); RED CELL DISTRI WIDTH 14.5 % (0-14.5)
[2021-10-09 15:12] LABS: BASO % 0.3 % (0.0-1.0); LYMPH # 2.5 10*3/uL (1.3-4.4); LYMPH % 21.2 % (27.0-41.0); MEAN CORPUSCULAR HGB 28.9 pg (27.0-31.0); MEAN CORPUSCULAR HGB CONC 33.7 g/dl (33.0-37.0); MEAN PLATELET VOLUME 11.3 fl (9.6-12.3); MONO # 0.9 10*3/uL (0.1-1.0); MONO % 7.8 % (3.0-9.0); NEUT # 8.2 10*3/uL (2.3-7.9); NEUT % 70.3 % (47.0-73.0); RED BLOOD COUNT 5.33 10*6/uL (4.50-5.90); WHITE BLOOD COUNT 11.6 10*3/uL (4.8-10.8)
[2021-10-09 15:13] LABS: MEAN CELL VOLUME 85.7 fl (80.0-94.0); PLATELET COUNT AUTOMATED 256 10*3/uL (130-400)
[2021-10-09 15:20] LABS: ALKALINE PHOSPHATASE 122 U/L (45-117); BUN 12 mg/dl (7-24); CHLORIDE 110 mmol/L (98-107); CREATININE 0.96 mg/dL (0.70-1.30); POTASSIUM 4.2 mmol/L (3.5-5.1); SGOT/AST 69 IU/L (3-35); SGPT/ALT 98 U/L (12-78); SODIUM 139 mmol/L (136-145); TOTAL PROTEIN 7.7 gm/dL (6.4-8.2)
[2021-10-09 16:03] LABS: CPK 1299 U/L (39-308)
== END 2021-10-09 21:23 | disposition short-term general hospital (02) ==
LOC: ED 12:09
PROVIDERS: Emergency Medicine
DX: G40.901 Epilepsy, unspecified, not intractable, with status epilepticus (principal); F17.210 Nicotine dependence, cigarettes, uncomplicated

== ENCOUNTER 2022-08-18 18:28 | Emergency (ER) | payer OTHER ==
[~2022-08-18] VITALS: Ht 177.8 cm; Wt 95.3 kg
[2022-08-18] MEDS ORDERED: KEPPRA500 MG PO (19:19)
[2022-08-18] MEDS ORDERED: CLINDAMYCIN HC300 MG PO (19:28)
== END 2022-08-18 19:49 | disposition home or self-care (01) ==
LOC: ED 18:28
DX: L03.116 Cellulitis of left lower limb (principal); F32.A Depression, unspecified; F41.9 Anxiety disorder, unspecified; F14.10 Cocaine abuse, uncomplicated; Z98.890 Other specified postprocedural states; F17.200 Nicotine dependence, unspecified, uncomplicated